=== PATIENT | female | born 1960 | race Caucasian/White ===

== ENCOUNTER 2019-07-11 08:16 | Emergency (ER) | payer OTHER ==
[~2019-07-11] VITALS: Ht 149.8 cm; Wt 90.9 kg
[2019-07-11 08:53] LABS: BILIRUBIN,URINE NEGATIVE (NEGATIVE); CLARITY,URINE SLT CLOUDY; COLOR,URINE YELLOW; GLUCOSE, URINE (UA) NEGATIVE (NEGATIVE); KETONES,URINE NEGATIVE (NEGATIVE); LEUKOCYTE ESTERASE ,URINE NEGATIVE (NEGATIVE); NITRITE,URINE POSITIVE (NEGATIVE); PROTEIN,URINE NEGATIVE (NEGATIVE)
[2019-07-11 08:54] LABS: BACTERIA,URINE LARGE /HPF; WBC,URINE RARE /HPF
[2019-07-11 09:00] LABS: BASOPHILS % (AUTO) 0 % (0-10); EOSINOPHILS % (AUTO) 1 % (0-10); HEMATOCRIT 45 % (35-52); LYMPHOCYTES % (AUTO) 14 % (12-44); MEAN CORPUSCULAR HEMOGLOBIN 32 PG (25-34); MEAN CORPUSCULAR HGB CONC 33 G/DL (32-36); MEAN CORPUSCULAR VOLUME 96 FL (80-99); MEAN PLATELET VOLUME 10.6 FL (7.4-10.4); MONOCYTES % (AUTO) 5 % (0-12); NEUTROPHILS # (AUTO) 7.3 X 10^3 (1.8-7.8); NEUTROPHILS % (AUTO) 80 % (42-75); PLATELET COUNT 230 10^3/uL (130-400); WHITE BLOOD COUNT 9.3 10^3/uL (4.3-11.0)
[2019-07-11] MEDS ORDERED: ONDANSETRON 4 MG/2 ML (SDV) Z0FRAN IVP ONE (09:00)
[2019-07-11] MEDS ORDERED: KETOROLAC 30 MG/ML VIAL IVP ONE (09:00)
[2019-07-11] MEDS ORDERED: NS IV 1000 ML 1,000 ML IV SCH (09:00)
[2019-07-11 09:01] LABS: EOSINOPHILS # (AUTO) 0.1 10^3/uL (0.0-0.3); LYMPHOCYTES # (AUTO) 1.3 X 10^3 (1.0-4.0); MONOCYTES # (AUTO) 0.5 X 10^3 (0.0-1.0)
[2019-07-11 09:14] LABS: ALKALINE PHOSPHATASE 115 U/L (40-136); BILIRUBIN,TOTAL 0.6 MG/DL (0.1-1.0); BUN/CREATININE RATIO 24; CALCIUM 9.4 MG/DL (8.5-10.1); CARBON DIOXIDE 25 MMOL/L (21-32); CHLORIDE 105 MMOL/L (98-107); CREATININE SERUM 0.62 MG/DL (0.60-1.30); GFR ESTIMATED > 60; GLUCOSE 146 MG/DL (70-105); POTASSIUM 4.1 MMOL/L (3.6-5.0); SODIUM 141 MMOL/L (135-145)
[2019-07-11 09:15] LABS: ALANINE AMINOTRANSFERASE 58 U/L (0-55); ALBUMIN 4.3 GM/DL (3.2-4.5); LIPASE 18 U/L (8-78); TOTAL PROTEIN 7.4 GM/DL (6.4-8.2)
--- NOTE | 2019-07-11 09:44 | Diagnostic Imaging Report ---
PROCEDURE: CT abdomen and pelvis without contrast. TECHNIQUE: Multiple contiguous axial images were obtained through the abdomen and pelvis without the use of intravenous contrast. Auto Exposure Controls were utilized during the CT exam to meet ALARA standards for radiation dose reduction. INDICATION: Low back pain and abdominal pain. No prior studies are available for comparison. FINDINGS: Lung bases are clear. There is a hiatal hernia. Liver shows diffuse low density consistent with hepatic steatosis. No mass is identified. The gallbladder is surgically absent. There is no biliary ductal dilatation. The pancreas and spleen are unremarkable. No adrenal mass is detected. Right kidney is unremarkable. Left kidney shows moderate hydronephrosis. There is a 5 mm stone in the proximal left ureter. The remainder of the left ureter is unremarkable. No bladder calculi are seen. The bladder is decompressed. Aorta is non-aneurysmal. Small and large bowel loops appear to be normal caliber. No obstruction is seen. There are postoperative changes involving anterior abdominal wall midline. No definite recurrent hernia is seen. There is no free fluid or loculated fluid collection. IMPRESSION: 1. 5 mm proximal left ureteric calculus producing moderate hydronephrosis. 2. Hepatic steatosis. 3. Hiatal hernia. Dictated by: Dictated on workstation # [id number]
[2019-07-11] MEDS ORDERED: morphine INJ 10 MG/ML 1ML (SYR OR VIAL) IVP STA (10:00)
[2019-07-11] MEDS ORDERED: cefTRIAXone FOR IV USE 1,000 MG in WATER (STERILE) FOR INJECTION 10 ML IV ONE (10:00)
--- NOTE | 2019-07-11 10:28 | ED Abdominal Pain ---
General Chief Complaint: Abdominal/GI Problems Stated Complaint: ABD/LWR BACK PAIN; NAUSEA Nursing Triage Note: Patient reports she woke up this morning around 5 am with left lower back pain that radiates to her left lower abdomen. She rates the pain at 9/10, denies any pain with urination/difficulty urinating, normal BM this morning, nausea and vomiting x 3 this morning. Sepsis Screen: No Definite Risk History of Present Illness Date Seen by Provider: Jul 11, 2019 Time Seen by Provider: 08:25 Initial Comments The patient is a very pleasant 59-year-old female who presents for evaluation of left flank pain radiating to the left lower quadrant since around 0500 this morning. She states that she has had a kidney stone in the past and that this feels similar. She notes that her urine seemed more dark than usual but she did not note any gross blood. She is alert and oriented 4, appears somewhat uncomfortable, but is in no distress this time. She denies rectal bleeding, diarrhea, nausea or vomiting, chest pain or shortness of breath, fevers or chills, dizziness or syncope. Timing/Duration: 1-3 Hours Severity/Quality: Moderate Location: Flank (left) Radiation: No Radiation Activities at Onset: None Associated Symptoms: Denies Symptoms Allergies and Home Medications Allergies Coded Allergies: Penicillins (Verified Allergy, Unknown, 07/11/19) metoclopramide (Verified Allergy, Unknown, 07/11/19) Patient Home Medication List Home Medication List Reviewed: Yes Review of Systems Review of Systems Constitutional: no symptoms reported EENTM: No Symptoms Reported Respiratory: No Symptoms Reported Cardiovascular: No Symptoms Reported Gastrointestinal: Other (left flank pain is present) Genitourinary: Other (urine darker than usual) Musculoskeletal: no symptoms reported Skin: no symptoms reported Psychiatric/Neurological: No Symptoms Reported Endocrine: No Symptoms Reported Hematologic/Lymphatic: No Symptoms Reported All Other Systems Reviewed Negative Unless Noted: Yes Past Frooorr-Xqkdgl-Bukzle Hx Past Med/Social Hx: Reviewed Nursing Past Med/Soc Hx Patient Social History Alcohol Use: Rarely Uses Recreational Drug Use: No Smoking Status: Never a Smoker 2nd Hand Smoke Exposure: No Recent Foreign Travel: No Contact w/Someone Who Travel: No Recent Infectious Disease Expo: No Recent Hopitalizations: No Physical Abuse: No Sexual Abuse: No Mistreated: No Fear: No Seasonal Allergies Seasonal Allergies: No Past Medical History Surgeries: Yes (hernia repair) Appendectomy, Section, Hysterectomy Respiratory: No Cardiac: No Neurological: No Genitourinary: Yes Kidney Stones Gastrointestinal: No Musculoskeletal: No Endocrine: No HEENT: No Cancer: No Psychosocial: No Integumentary: No Physical Exam Vital Signs Vital Signs - First Documented 07/11/19 08:39 Temp 36.0 Pulse 77 Resp 18 B/P (MAP) 156/101 (119) Pulse Ox 96 O2 Delivery Room Air Capillary Refill : Less Than 3 Seconds Height/Weight/BMI Height: '" Weight: lbs. oz. 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, no motor/sensory deficits, alert, normal mood/affect, oriented x 3 Skin: normal color, warm/dry Progress/Results/Core Measures Results/Orders Lab Results Laboratory Tests Test 07/11/19 08:35 07/11/19 08:45 Range/Units Urine Color YELLOW Urine Clarity SLT CLOUDY Urine pH 5.0 5-9 Urine Specific [place] >=1.030 1.016-1.022 Urine Protein NEGATIVE NEGATIVE Urine Glucose (UA) NEGATIVE NEGATIVE Urine Ketones NEGATIVE NEGATIVE Urine Nitrite POSITIVE H NEGATIVE Urine Bilirubin NEGATIVE NEGATIVE Urine Urobilinogen 0.2 NORMAL MG/DL Urine Leukocyte Esterase NEGATIVE NEGATIVE Urine RBC (Auto) 3+ H NEGATIVE Urine RBC 10-25 H /HPF Urine WBC RARE /HPF Urine Squamous Epithelial Cells 5-10 /HPF Urine Crystals NONE /LPF Urine Bacteria LARGE H /HPF Urine Casts NONE /LPF Urine Mucus NONE /LPF Urine Culture Indicated YES White Blood Count 9.3 4.3-11.0 10^3/uL Red Blood Count 4.71 4.35-5.85 10^6/uL Hemoglobin 15.0 11.5-16.0 G/DL Hematocrit 45 35-52 % Mean Corpuscular Volume 96 80-99 FL Mean Corpuscular Hemoglobin 32 25-34 PG Mean Corpuscular Hemoglobin Concent 33 32-36 G/DL Red Cell Distribution Width 12.0 10.0-14.5 % Platelet Count 230 130-400 10^3/uL Mean Platelet Volume 10.6 H 7.4-10.4 FL Neutrophils (%) (Auto) 80 H 42-75 % Lymphocytes (%) (Auto) 14 12-44 % Monocytes (%) (Auto) 5 0-12 % Eosinophils (%) (Auto) 1 0-10 % Basophils (%) (Auto) 0 0-10 % Neutrophils # (Auto) 7.3 1.8-7.8 X 10^3 Lymphocytes # (Auto) 1.3 1.0-4.0 X 10^3 Monocytes # (Auto) 0.5 0.0-1.0 X 10^3 Eosinophils # (Auto) 0.1 0.0-0.3 10^3/uL Basophils # (Auto) 0.0 0.0-0.1 10^3/uL Sodium Level 141 135-145 MMOL/L Potassium Level 4.1 3.6-5.0 MMOL/L Chloride Level 105 98-107 MMOL/L Carbon Dioxide Level 25 21-32 MMOL/L Anion Gap 11 5-14 MMOL/L Blood Urea Nitrogen 15 7-18 MG/DL Creatinine 0.62 0.60-1.30 MG/DL Estimat Glomerular Filtration Rate > 60 BUN/Creatinine Ratio 24 Glucose Level 146 H 70-105 MG/DL Calcium Level 9.4 8.5-10.1 MG/DL Corrected Calcium 9.2 8.5-10.1 MG/DL Total Bilirubin 0.6 0.1-1.0 MG/DL Aspartate Amino Transf (AST/SGOT) 34 5-34 U/L Alanine Aminotransferase (ALT/SGPT) 58 H 0-55 U/L Alkaline Phosphatase 115 40-136 U/L Total Protein 7.4 6.4-8.2 GM/DL Albumin 4.3 3.2-4.5 GM/DL Lipase 18 8-78 U/L My Orders Orders - NASIM DURAN DO Ua Culture If Indicated (07/11/19 08:34) Comprehensive Metabolic Panel (07/11/19 08:49) Lipase (07/11/19 08:49) Ed Iv/Invasive Line Start (07/11/19 08:49) Cbc With Automated Diff (07/11/19 08:49) Ct Abdomen/Pelvis Wo (07/11/19 08:49) Urine Culture (07/11/19 08:35) Ketorolac Injection (Toradol Injection) (07/11/19 09:00) Ondansetron Injection (Zofran Injectio (07/11/19 09:00) Ns Iv 1000 Ml (Sodium Chloride 0.9%) (07/11/19 09:00) Ceftriaxone For Iv Use (Rocephin For I (07/11/19 10:00) Medications Given in ED Current Medications Medications Dose Ordered Sig/Patricia Route Start Time Stop Time Status Last Admin Dose Admin Ceftriaxone Sodium 1000 mg/ Sterile Water 10 ml @ 200 mls/hr ONCE ONCE IV 07/11/19 10:00 07/11/19 10:02 DC 07/11/19 10:29 200 MLS/HR Ketorolac Tromethamine 30 mg ONCE ONCE IVP 07/11/19 09:00 07/11/19 09:01 DC 07/11/19 09:03 30 MG Ondansetron HCl 4 mg ONCE ONCE IVP 07/11/19 09:00 07/11/19 09:01 DC 07/11/19 09:03 4 MG Vital Signs/I&O 07/11/19 08:39 Temp 36.0 Pulse 77 Resp 18 B/P (MAP) 156/101 (119) Pulse Ox 96 O2 Delivery Room Air Blood Pressure Mean: 119 Progress Progress Note : Progress Note @1040 - patient updated on lab and imaging results. She states that she is feeling much better and is asking to be discharged home. I did offer to transfer the patient to facility with urology but she declines. Advised patient to follow up with her PCP and/or urology in the next 1-2 days and return to the emergency Department immediately for new or worsening symptoms. Diagnostic Imaging Comments [facility]. [place], [place] NAME: REGINA CHOPRA MED REC#: [id number] PT STATUS: REG ER : 1960 PHYSICIAN: NASIM DURAN DO ADMIT DATE: 07/11/19/ER FS Draft Date of Exam:07/11/19 CT ABDOMEN/PELVIS WO PROCEDURE: CT abdomen and pelvis without contrast. TECHNIQUE: Multiple contiguous axial images were obtained through the abdomen and pelvis without the use of intravenous contrast. Auto Exposure Controls were utilized during the CT exam to meet ALARA standards for radiation dose reduction. INDICATION: Low back pain and abdominal pain. No prior studies are available for comparison. FINDINGS: Lung bases are clear. There is a hiatal hernia. Liver shows diffuse low density consistent with hepatic steatosis. No mass is identified. The gallbladder is surgically absent. There is no biliary ductal dilatation. The pancreas and spleen are unremarkable. No adrenal mass is detected. Right kidney is unremarkable. Left kidney shows moderate hydronephrosis. There is a 5 mm stone in the proximal left ureter. The remainder of the left ureter is unremarkable. No bladder calculi are seen. The bladder is decompressed. Aorta is non-aneurysmal. Small and large bowel loops appear to be normal caliber. No obstruction is seen. There are postoperative changes involving anterior abdominal wall midline. No definite recurrent hernia is seen. There is no free fluid or loculated fluid collection. IMPRESSION: 1. 5 mm proximal left ureteric calculus producing moderate hydronephrosis. 2. Hepatic steatosis. 3. Hiatal hernia. Dictated on workstation # [id number] Dict: 07/11/19 0934 Trans: 07/11/19 0943 [id number] Interpreted by: CHSA BLANK MD Electronically signed by: Departure Impression Primary Impression: Left ureteral calculus Additional Impression: Hydronephrosis, left Disposition: 01 HOME, SELF-CARE Condition: Stable Departure-Patient Inst. Referrals: CANDACE GOLDSTEIN MD Patient Instructions: Kidney Stone Diet Add. Discharge Instructions: Follow-up with Dr. Goldstein from urology in the next 1-2 days. Return to the emergency Department immediately for new or worsening symptoms. Take the prescribed medicine as directed. Scripts Ondansetron (Ondansetron Odt) 4 Mg Tab.rapdis 4 MG PO Q6H PRN for NAUSEA/VOMITING-1ST LINE for 5 Days, #20 TAB Prov: NASIM DURAN DO 07/11/19 Hydrocodone/Acetaminophen ([place] 5-325 Tablet) 1 Each Tablet 1 TAB PO Q4-6HR for Pain MDD 10 TABS for 5 Days, #15 TAB Prov: NASIM DURAN DO 07/11/19 NASIM DURAN DO Jul 11, 2019 10:27
[2019-07-11] MEDS ORDERED: ONDA4TAB11 PO (10:50)
[2019-07-11] MEDS ORDERED: HYDR-4226 PO (10:50)
[2019-07-11 11:15] VITALS: BP 141/74
== END 2019-07-11 11:15 | disposition home or self-care (01) ==
LOC: ER FS 08:18
DX: N13.2 Hydronephrosis with renal and ureteral calculous obstruction (principal); Z88.0 Allergy status to penicillin; Z88.8 Allergy status to other drugs, medicaments and biological substances; Z90.49 Acquired absence of other specified parts of digestive tract; Z90.89 Acquired absence of other organs
CPT/HCPCS: 36415; 74176; 80053; 81000; 83690; 85025; 87077; 87088; 87186; 96374; 96375

== ENCOUNTER 2019-07-13 11:18 | Emergency (ER) | payer OTHER ==
[~2019-07-13] VITALS: Ht 147.3 cm; Wt 98.0 kg
[~2019-07-13 11:18] MED LIST: HYDR-4226 PO; ONDA4TAB11 PO
[2019-07-13] MEDS ORDERED: KETOROLAC 30 MG/ML VIAL IVP STA (11:44)
[2019-07-13] MEDS ORDERED: NS IV 1000 ML 1,000 ML IV ONE (11:44)
[2019-07-13 11:59] LABS: BILIRUBIN,URINE NEGATIVE (NEGATIVE); CLARITY,URINE SLIGHTLY CLOUDY; COLOR,URINE YELLOW; GLUCOSE, URINE (UA) NEGATIVE (NEGATIVE); KETONES,URINE NEGATIVE (NEGATIVE); LEUKOCYTE ESTERASE ,URINE NEGATIVE (NEGATIVE); NITRITE,URINE NEGATIVE (NEGATIVE); PH,URINE 5 (5-9); PROTEIN,URINE NEGATIVE (NEGATIVE)
--- NOTE | 2019-07-13 12:02 | ED GU-Female ---
General Chief Complaint: - Urinary Stated Complaint: KIDNEY STONE Nursing Triage Note: Pt ambulatory to rm 0. Pt reports having a 5 mm kidney stone on the L side and the pain has worsened today. Pt also c/o N/V. Nursing Sepsis Screen: No Definite Risk Source: patient Exam Limitations: no limitations History of Present Illness Date Seen by Provider: Jul 13, 2019 Time Seen by Provider: 11:36 Initial Comments Here with complaint of left-sided abdominal pain with known kidney stone in the left proximal ureter. Pain is worse today and is associated with nausea and vomiting. Denies fever or chills. Does have findings of urinary tract infection now noted from previous culture that the patient did not know about. Denies diarrhea. States she's been drinking okay although with the pain she's had the nausea and vomiting. The hydrocodone is working for a little while but it does definitely wear off every 4-6 hours with return of pain. She did call Dr. Goldstein's office who recommended that she come to the emergency department. Initial evaluation was at the [facility]. Timing/Duration: getting worse, other (few days) Severity/Quality: moderate, aching, sharp Location: left flank Radiation: none Activities at Onset: none Modifying Factors: Improves With Analgesics Associated Symptoms: abdominal pain; No dysuria, No fever/chills; nausea/vomiting; No urinary frequency Allergies and Home Medications Allergies Coded Allergies: Penicillins (Verified Allergy, Unknown, 07/11/19) metoclopramide (Verified Allergy, Unknown, 07/11/19) Home Medications Hydrocodone/Acetaminophen 1 Each Tablet, 1 TAB PO Q4-6HR Prescribed by: NASIM DURAN on 07/11/19 1050 Ondansetron 4 Mg Tab.rapdis, 4 MG PO Q6H PRN for NAUSEA/VOMITING-1ST LINE Prescribed by: NASIM DURAN on 07/11/19 1050 Patient Home Medication List Home Medication List Reviewed: Yes Review of Systems Review of Systems Constitutional: see HPI; No chills, No fever EENTM: no symptoms reported Respiratory: no symptoms reported Cardiovascular: no symptoms reported Gastrointestinal: abdominal pain, nausea, vomiting Genitourinary: flank pain, pain : No Musculoskeletal: no symptoms reported Skin: no symptoms reported Psychiatric/Neurological: No Symptoms Reported All Other Systemes Reviewed Negative Unless Noted: Yes Past Iplguqf-Qxqasn-Xswzoj Hx Past Med/Social Hx: Reviewed Nursing Past Med/Soc Hx Patient Social History Alcohol Use: Denies Use Recreational Drug Use: No 2nd Hand Smoke Exposure: No Recent Foreign Travel: No Contact w/Someone Who Travel: No Recent Infectious Disease Expo: No Recent Hopitalizations: No Physical Abuse: No Sexual Abuse: No Mistreated: No Seasonal Allergies Seasonal Allergies: No Past Medical History Surgeries: Yes (hernia repair, R wrist, wisdom teeth) Appendectomy, Section, Gallbladder, Hysterectomy, Orthopedic Respiratory: No Cardiac: No Hypertension Neurological: No Genitourinary: Yes Kidney Stones Gastrointestinal: No Musculoskeletal: No Endocrine: No HEENT: No Cancer: No Psychosocial: Yes Anxiety, Depression Integumentary: No Blood Disorders: No Family Medical History Reviewed Nursing Family Hx Physical Exam Vital Signs Vital Signs - First Documented 07/13/19 11:30 Temp 37.8 Pulse 89 Resp 15 B/P (MAP) 154/89 (110) Pulse Ox 92 O2 Delivery Room Air Capillary Refill : Less Than 3 Seconds Height, Weight, BMI Height: '" Weight: lbs. oz. kg; 45.00 BMI Method: General Appearance: WD/WN, no apparent distress HEENT: PERRL/EOMI, pharynx normal Neck: full range of motion, supple Cardiovascular: regular rate, rhythm, no murmur Respiratory: lungs clear, normal breath sounds Gastrointestinal: non tender, soft Back: normal inspection, no vertebral tenderness, CVA tenderness (L) Extremities: non-tender, normal inspection Neurologic/Psychiatric: alert, oriented x 3 Skin: normal color, warm/dry Progress/Results/Core Measures Suspected Sepsis Recent Fever Within 48 Hours: No Infection Criteria Present: None New/Unexplained Altered Menta: No Sepsis Screen: No Definite Risk SIRS Temperature: Pulse: 89 Respiratory Rate: 15 Laboratory Tests 07/13/19 11:45: White Blood Count 10.8 Blood Pressure 154 /89 Mean: 110 Laboratory Tests 07/13/19 11:45: Creatinine 0.89, Platelet Count 201 Results/Orders Lab Results Laboratory Tests Test 07/13/19 11:32 07/13/19 11:45 Range/Units Urine Color YELLOW Urine Clarity SLIGHTLY CLOUDY Urine pH 5 5-9 Urine Specific [place] 1.015 L 1.016-1.022 Urine Protein NEGATIVE NEGATIVE Urine Glucose (UA) NEGATIVE NEGATIVE Urine Ketones NEGATIVE NEGATIVE Urine Nitrite NEGATIVE NEGATIVE Urine Bilirubin NEGATIVE NEGATIVE Urine Urobilinogen NORMAL NORMAL MG/DL Urine Leukocyte Esterase NEGATIVE NEGATIVE Urine RBC (Auto) 4+ H NEGATIVE Urine RBC 5-10 H /HPF Urine WBC NONE /HPF Urine Squamous Epithelial Cells 5-10 /HPF Urine Crystals NONE /LPF Urine Bacteria TRACE /HPF Urine Casts NONE /LPF Urine Mucus NEGATIVE /LPF Urine Culture Indicated NO White Blood Count 10.8 4.3-11.0 10^3/uL Red Blood Count 4.21 L 4.35-5.85 10^6/uL Hemoglobin 13.4 11.5-16.0 G/DL Hematocrit 41 35-52 % Mean Corpuscular Volume 96 80-99 FL Mean Corpuscular Hemoglobin 32 25-34 PG Mean Corpuscular Hemoglobin Concent 33 32-36 G/DL Red Cell Distribution Width 12.3 10.0-14.5 % Platelet Count 201 130-400 10^3/uL Mean Platelet Volume 10.5 H 7.4-10.4 FL Neutrophils (%) (Auto) 79 H 42-75 % Lymphocytes (%) (Auto) 11 L 12-44 % Monocytes (%) (Auto) 10 0-12 % Eosinophils (%) (Auto) 0 0-10 % Basophils (%) (Auto) 0 0-10 % Neutrophils # (Auto) 8.5 H 1.8-7.8 X 10^3 Lymphocytes # (Auto) 1.2 1.0-4.0 X 10^3 Monocytes # (Auto) 1.1 H 0.0-1.0 X 10^3 Eosinophils # (Auto) 0.0 0.0-0.3 10^3/uL Basophils # (Auto) 0.0 0.0-0.1 10^3/uL Sodium Level 138 135-145 MMOL/L Potassium Level 4.1 3.6-5.0 MMOL/L Chloride Level 102 98-107 MMOL/L Carbon Dioxide Level 27 21-32 MMOL/L Anion Gap 9 5-14 MMOL/L Blood Urea Nitrogen 12 7-18 MG/DL Creatinine 0.89 0.60-1.30 MG/DL Estimat Glomerular Filtration Rate > 60 BUN/Creatinine Ratio 13 Glucose Level 92 70-105 MG/DL Calcium Level 9.1 8.5-10.1 MG/DL My Orders Orders - PHIL STREET MD Abdomen/Kub 1view (07/13/19 11:44) Basic Metabolic Panel (07/13/19 11:44) Cbc With Automated Diff (07/13/19 11:44) Ua Culture If Indicated (07/13/19 11:44) Ed Iv/Invasive Line Start (07/13/19 11:44) Ns Iv 1000 Ml (Sodium Chloride 0.9%) (07/13/19 11:44) Ketorolac Injection (Toradol Injection) (07/13/19 11:44) Medications Given in ED Current Medications Medications Dose Ordered Sig/Patricia Route Start Time Stop Time Status Last Admin Dose Admin Sodium Chloride 1,000 ml @ 0 mls/hr Q0M ONCE IV 07/13/19 11:44 07/13/19 11:46 DC 07/13/19 12:02 1,000 MLS/HR Vital Signs/I&O 07/13/19 11:30 Temp 37.8 Pulse 89 Resp 15 B/P (MAP) 154/89 (110) Pulse Ox 92 O2 Delivery Room Air Capillary Refill : Less Than 3 Seconds Blood Pressure Mean: 110 Progress Note : Progress Note Seen and evaluated. IV, labs, UA, normal saline 1 L bolus and Toradol 30 mg IV ordered. Monitor patient. Previous visit reviewed and culture noted to be positive for Escherichia coli that is pansensitive. We will recheck urine and likely initiate IV antibiotics given that she has had nausea and vomiting. Monitor patient. 1330: Labs reviewed. UA is actually negative today for urinary tract infection. Patient states that she thinks she had a dose of IV antibiotics of the day. We will go ahead and initiate outpatient antibiotics given concerns about possibility for infection from stone passing. Stone has moved. I did discuss the case with Dr. Goldstein and he will see her on Tuesday at noon and we will fax a copy of the chart over to him. Discharged home with return precautions. Patient verbalize understanding instructions and agreement with plan. Diagnostic Imaging Diagonstic Imaging: Xray Plain Films/CT/US/NM/MRI: abdomen Comments [facility] [employer] [facility]. [place], [place] NAME: REGINA CHOPRA [facility] REC#: [id number] PT STATUS: REG ER : 1960 PHYSICIAN: PHIL STREET MD ADMIT DATE: 07/13/19/ER Draft Date of Exam:07/13/19 ABDOMEN/KUB 1VIEW INDICATION: Left kidney stones. TIME OF EXAM: 12:26 p.m. Correlation is made with CT study performed two days earlier. FINDINGS: There are surgical clips in the right upper quadrant. Bowel gas pattern is nonobstructed. Stone noted on recent CT in the proximal left ureter is not seen. There are calcific densities more medially in the left hemipelvis. The more medially located calculus may be located in the distal left ureter. Other calculus may represent a phlebolith. No other radiopaque urinary tract calculi are seen. IMPRESSION: Left pelvic calcification, perhaps distal ureteric, which is likely progressed down the left ureter since CT two days earlier. No other abnormality is seen. Dictated on workstation # [id number] Dict: 07/13/19 1227 Trans: 07/13/19 1232 [facility] [id number] Interpreted by: CHAS BLANK MD Electronically signed by: Departure Impression Primary Impression: Left ureteral stone Disposition: 01 HOME, SELF-CARE Condition: Improved Departure-Patient Inst. Decision time for Depature: 13:37 Referrals: NO,LOCAL PHYSICIAN (PCP/Family) Primary Care Physician Patient Instructions: Kidney Stones (DC) Add. Discharge Instructions: All discharge instructions reviewed with patient and/or family. Voiced understanding. Drink plenty of fluids. You may take Aleve [id number] 2 tablets twice a day for the next several days and then as needed. Take your pain medication as prescribed. If you're not taking the prescribed pain medicine you may take Tylenol/acetaminophen 1000 mg every 8 hours as needed for pain. Do not take both at the same time as they both have acetaminophen in them. Follow-up with Dr. Goldstein at his office at noon on 07/16/19. Return for worsening, fever, vomiting, weakness, breathing problems or other concerns as needed. Scripts Cephalexin (Cephalexin) 500 Mg Tablet 500 MG PO BID, #14 TAB 0 Refills Prov: PHIL STREET MD 07/13/19 Copy Copies To 1: CANDACE GOLDSTEIN MD, TIMOTHY D MD Jul 13, 2019 12:02
[2019-07-13 12:03] LABS: BASOPHILS % (AUTO) 0 % (0-10); EOSINOPHILS % (AUTO) 0 % (0-10); HEMATOCRIT 41 % (35-52); HEMOGLOBIN 13.4 G/DL (11.5-16.0); LYMPHOCYTES # (AUTO) 1.2 X 10^3 (1.0-4.0); LYMPHOCYTES % (AUTO) 11 % (12-44); MEAN CORPUSCULAR HEMOGLOBIN 32 PG (25-34); MEAN CORPUSCULAR HGB CONC 33 G/DL (32-36); MEAN CORPUSCULAR VOLUME 96 FL (80-99); MEAN PLATELET VOLUME 10.5 FL (7.4-10.4); MONOCYTES # (AUTO) 1.1 X 10^3 (0.0-1.0); MONOCYTES % (AUTO) 10 % (0-12); NEUTROPHILS # (AUTO) 8.5 X 10^3 (1.8-7.8); NEUTROPHILS % (AUTO) 79 % (42-75); PLATELET COUNT 201 10^3/uL (130-400); RED CELL DISTRIBUTION WIDTH 12.3 % (10.0-14.5); WHITE BLOOD COUNT 10.8 10^3/uL (4.3-11.0)
[2019-07-13 12:22] LABS: BACTERIA,URINE TRACE /HPF
[2019-07-13 12:25] LABS: BUN/CREATININE RATIO 13; CALCIUM 9.1 MG/DL (8.5-10.1); CARBON DIOXIDE 27 MMOL/L (21-32); CHLORIDE 102 MMOL/L (98-107); CREATININE SERUM 0.89 MG/DL (0.60-1.30); GFR ESTIMATED > 60; GLUCOSE 92 MG/DL (70-105); POTASSIUM 4.1 MMOL/L (3.6-5.0); SODIUM 138 MMOL/L (135-145)
--- NOTE | 2019-07-13 12:31 | NUR ---
Pt reports pain has resolved at this time; 0/10.
--- NOTE | 2019-07-13 12:32 | Diagnostic Imaging Report ---
INDICATION: Left kidney stones. TIME OF EXAM: 12:26 p.m. Correlation is made with CT study performed two days earlier. FINDINGS: There are surgical clips in the right upper quadrant. Bowel gas pattern is nonobstructed. Stone noted on recent CT in the proximal left ureter is not seen. There are calcific densities more medially in the left hemipelvis. The more medially located calculus may be located in the distal left ureter. Other calculus may represent a phlebolith. No other radiopaque urinary tract calculi are seen. IMPRESSION: Left pelvic calcification, perhaps distal ureteric, which is likely progressed down the left ureter since CT two days earlier. No other abnormality is seen. Dictated by: Dictated on workstation # [id number]
[2019-07-13] MEDS ORDERED: CEPH500T PO (13:39)
[2019-07-13 14:08] VITALS: BP 157/101
== END 2019-07-13 14:10 | disposition home or self-care (01) ==
LOC: EDUNIT# 11:18 → ER 11:20
DX: N20.1 Calculus of ureter (principal); I10 Essential (primary) hypertension; F41.9 Anxiety disorder, unspecified; F32.9 Major depressive disorder, single episode, unspecified; Z88.0 Allergy status to penicillin; Z88.8 Allergy status to other drugs, medicaments and biological substances; Z90.49 Acquired absence of other specified parts of digestive tract; Z90.710 Acquired absence of both cervix and uterus
CPT/HCPCS: 36415; 74018; 80048; 81000; 85025; 96374

== ENCOUNTER 2019-07-16 13:55 | Outpatient (CLI) | payer OTHER ==
[~2019-07-16] VITALS: Ht 147 cm; Wt 90.9 kg
[~2019-07-16 13:55] MED LIST changes: +CEPH500T PO
[2019-07-16] MEDS ORDERED: CITA20TA12 PO (15:32)
[2019-07-16] MEDS ORDERED: LISI40TA PO (15:32)
[2019-07-17] MEDS ORDERED: NITR-65 PO (10:50)
[2019-07-17] MEDS ORDERED: PHEN-640 PO (10:50)
== END 2019-07-16 15:55 | disposition home or self-care (01) ==
LOC: PREOP 13:55
PROVIDERS: ATTEND Urology
DX: Z01.818 Encounter for other preprocedural examination (principal)

== ENCOUNTER 2019-07-17 07:03 | Day surgery (SDC) | payer BC, OTHER ==
[~2019-07-17] VITALS: Ht 147.3 cm; Wt 90.9 kg
[2019-07-17] VITALS (10 sets, daily range): BP systolic 135–170; BP diastolic 82–98
[~2019-07-17 07:03] MED LIST changes: +CITA20TA12 PO; +LISI40TA PO
[2019-07-17] MEDS ORDERED: LEVOFLOXACIN 500 MG/100 ML IV 100 ML IV ONE (07:45)
[2019-07-17] MEDS ORDERED: LACTATED RINGERS 1,000 ML IV PRN (07:47)
--- NOTE | 2019-07-17 07:49 | Progress Note-Pre Operative ---
Pre-Operative Progress Note H&P Reviewed The H&P was reviewed, patient examined and no changes noted. Date Seen by Provider: Jul 17, 2019 Time Seen by Provider: 07:49 Date H&P Reviewed: Jul 17, 2019 Time H&P Reviewed: 07:49 Pre-Operative Diagnosis: LT DISTAL URETERAL STONE CANDACE GOLDSTEIN MD Jul 17, 2019 07:49 POS
--- NOTE | 2019-07-17 07:51 | Progress Note-Post Operative ---
Post-Operative Progess Note Surgeon (s)/Slip Box Changer (s) Surgeon CANDACE GOLDSTEIN MD Slip Box Changer: NONE Pre-Operative Diagnosis LT DISTAL URETERAL STONE Post-Operative Diagnosis SAME Procedure & Operative Findings Date of Procedure 07/17/19 Procedure Performed/Findings LT URETEROSCOPY WITH STONE BASKET Anesthesia Type GENERAL Estimated Blood Loss Estimated blood loss (mL): NONE Specimens/Packing Specimens Removed STONE Packing: NONE CANDACE GOLDSTEIN MD Jul 17, 2019 07:51 POS
--- NOTE | 2019-07-17 07:54 | Discharge Inst-Urology ---
Discharge Inst-Urology Reconcile Patient Problems Problems Reviewed?: Yes Final Diagnosis LT URETERAL STONE Patient Instructions/Follow Up Plan/Assessment/Instructions NO F/U appointment, [place] Stone for analysis post seen by patient Increase oral fluids for 48 hours and then as needed. Diet and Activity as tolerated. If questions or concerns contact your physician Or seek help at emergency department. CANDACE GOLDSTEIN MD Jul 17, 2019 07:54 POS
[2019-07-17] MEDS ORDERED: ONDANSETRON 4 MG/2 ML (SDV) Z0FRAN ONE (08:49)
[2019-07-17] MEDS ORDERED: DEXAMETHASONE 10 MG/ML (DECADRON) 1 ML VIAL ONE (08:49)
[2019-07-17] MEDS ORDERED: LIDOCAINE PF 2% 5 ML (XYLOCAINE) VIAL ONE (08:49)
[2019-07-17] MEDS ORDERED: fentaNYL INJECTION 100 MCG/2 ML AMP ONE (08:49)
[2019-07-17] MEDS ORDERED: SEVOFLURANE (ULTANE) 15 ML INHAL SOLN ONE (08:49)
[2019-07-17] MEDS ORDERED: proPOfol 200 MG/20 ML (DIPRIVAN) VIAL IV ONE (08:49)
[2019-07-17] MEDS ORDERED: MIDAZOLAM 2 MG/2 ML (VERSED) VIAL ONE (08:49)
--- NOTE | 2019-07-17 09:16 | Diagnostic Imaging Report ---
INDICATION: Preop nephrolithiasis. COMPARISON: Radiographs of 07/13/[address] of 07/11/2019. FINDINGS: The roughly 6 mm calculus has advanced more distally and is now just slightly left of midline at the lower coccygeal level. This may be in the distal UVJ or passed into the bladder lumen, correlate with symptoms. No new abnormality. IMPRESSION: The large distal left ureteral stone has at least slightly advanced distally from the prior exams and is more inferomedial than previously. This could be in the UVJ or bladder lumen. Dictated by: Dictated on workstation # [id number]
--- NOTE | 2019-07-17 10:00 | Anesthesia-General Post-Op ---
General Patient Condition Mental Status/LOC: Same as Preop Cardiovascular: Satisfactory Nausea/Vomiting: Absent Respiratory: Satisfactory Pain: Controlled Complications: Absent Post Op Complications Complications None Follow Up Care/Instructions Patient Instructions None needed. Anesthesia/Patient Condition Patient Condition Patient is doing well, no complaints, stable vital signs, no apparent adverse anesthesia problems. No complications reported per nursing. DAVIDSON MCNAMARA CRNA Jul 17, 2019 10:00 POS
[2019-07-17] MEDS ORDERED: NITR-65 PO (10:50)
[2019-07-17] MEDS ORDERED: PHEN-640 PO (10:50)
--- NOTE | 2019-07-17 15:09 | OPERATIVE REPORT ---
DATE OF SERVICE: 07/17/2019 PREOPERATIVE DIAGNOSIS: Left distal ureteral stone. POSTOPERATIVE DIAGNOSIS: Left distal ureteral stone. OPERATION PERFORMED: Left ureteroscopy with stone basket. SURGEON: Elijah Goldstein MD ANESTHESIA: General. COMPLICATIONS: None. DESCRIPTION OF PROCEDURE: Under satisfactory general anesthesia, the patient in lithotomy position, genitalia were prepped and draped in the usual sterile fashion. Cystoscope was introduced under vision. The bladder was normal except for an edematous left ureteral orifice intramural portion with very sluggish efflux. Using the foroblique lens, I dilated the left ureteral orifice intramural portion to accommodate a 6.9 [place] semi-rigid ureteroscope. During the process of dilatation I felt I had disimpacted the stone from the intramural portion of the ureter, it was now floating visualized by the ureteroscope. I did not want to lose it so I decided to basket it. I basketed with 3-[place] basket, engaged the stone under vision and extracted it completely. I went back with ureteroscope to confirm the integrity of the ureter as well as normal with no fragments or other stones more proximally. I removed the ureteroscope, reinserted the cystoscope to empty the bladder. The patient tolerated the procedure and anesthesia well and was sent to recovery room in stable condition. Job ID: [id number] DocumentID: [id number] Dictated Date: 07/17/2019 09:41:35 Press Setup Operator Date: 07/17/2019 15:08:01 Dictated By: ELIJAH GOLDSTEIN MD
== END 2019-07-17 11:50 | disposition home or self-care (01) ==
LOC: SDC 07:03
PROVIDERS: ATTEND Urology
DX: N20.1 Calculus of ureter (principal); F32.9 Major depressive disorder, single episode, unspecified; F41.9 Anxiety disorder, unspecified; I10 Essential (primary) hypertension; E66.01 Morbid (severe) obesity due to excess calories; Z68.41 Body mass index [BMI] 40.0-44.9, adult; Z79.899 Other long term (current) drug therapy; Z90.49 Acquired absence of other specified parts of digestive tract; Z88.0 Allergy status to penicillin; Z88.8 Allergy status to other drugs, medicaments and biological substances; Z90.710 Acquired absence of both cervix and uterus
CPT/HCPCS: 74018; 87081